=== PATIENT | female | born 1985 | race Caucasian/White ===

== ENCOUNTER 2019-05-04 21:45 | Emergency (ER) | payer OTHER ==
[~2019-05-04] VITALS: Ht 152.4 cm; Wt 83.9 kg
[2019-05-04 21:57] VITALS: BP 123/67
[2019-05-04] MEDS ORDERED: ACETAMINOPHEN EXTRA STRENGTH 500 MG TAB PO ONE (22:30)
[2019-05-04 23:02] VITALS: BP 120/68
== END 2019-05-04 23:02 | disposition home or self-care (01) ==
LOC: MED 21:45
DX: B34.9 Viral infection, unspecified (principal)
CPT/HCPCS: 87804; 99283